=== PATIENT | female | born 1965 | race African-American/Black ===

== ENCOUNTER 2021-05-09 16:00 | Inpatient (IN) ==
[2021-05-09] MEDS ORDERED: GLUCAGON 1 MG VIAL IM PRN (19:34)
[2021-05-09] MEDS ORDERED: DEXTROSE 50% 25 GM/50 ML VIAL IV PRN (19:34)
[2021-05-09] MEDS ORDERED: ONDANSETRON 4 MG/2 ML VIAL IV PRN (19:38)
[2021-05-09] MEDS ORDERED: ACETAMINOPHEN 325 MG TABLET PO PRN (19:38)
[2021-05-09] MEDS ORDERED: SIMETHICONE CHEW 125 MG TABLET PO PRN (19:38)
[2021-05-09] MEDS ORDERED: SODIUM CHLORIDE 0.9% 1,000 ML IV SCH (20:00)
[2021-05-09 20:18] LABS: Basophils % 0.3 % (0.0-0.8); Eosinophils # 0.1 10*3/uL (0.0-0.87); Eosinophils % 0.6 % (0.00-10.9); Hematocrit 28.8 VOL% (35.7-47.0); Hemoglobin 9.1 GM/DL (12.0-16.0); Immature Granulocytes % 1.6 %; Immature Granulocytes Absolute 0.18 #; Lymphocytes # 1.8 10*3/uL (1.4-4.0); Mean Corpuscular HGB Conc 31.6 GM/DL (32-36); Mean Corpuscular Volume 85.7 FL (87-102); Mean Platelet Volume 10.4 FL (9.6-12.0); Monocytes % 9.7 % (1.7-12.7); NRBC # 0.02 10*3/uL; Neutrophils % 71.8 % (38.7-73.9); Platelet Count 225 T/CUMM (130-400); Red Blood Count 3.36 MC/CUMM (3.8-5.5); Red Cell Distribution Width 19.6 % (9.3-17.3); White Blood Count 11.3 T/CUMM (4-12)
[2021-05-09 20:29] LABS: PT Patient Result 11.3 SECS (10.5-12.0); Partial Thromboplastin Time 46.5 SECS (23.8-32.1)
[2021-05-09 20:40] LABS: Alanine Aminotransferase 23 U/L (13-56); Albumin 1.4 G/DL (3.4-5.0); Alkaline Phosphatase 93 U/L (45-117); Aspartate Amino Transferase 18 U/L (0-37); Bilirubin,Total < 0.39 MG/DL (0.20-1.00); Blood Urea Nitrogen 23 MG/DL (7-18); Calcium 8.1 MG/DL (8.5-10.1); Carbon Dioxide 25 MMOL/L (21-32); Estimated Glom Filtration Rate 37 ML/MIN; Glucose 223 MG/DL (74-106); Osmolality,Calculated 319.2 MOS/KG (273-304); Potassium 3.4 MMOL/L (3.5-5.1); Sodium 156 MMOL/L (136-145); Total Protein 5.2 G/DL (6.4-8.2)
[2021-05-09] MEDS: DOCUSATE SODIUM 100 MG CAPSULE PO SCH (21:23)
[2021-05-09] MEDS ORDERED: POTASSIUM CHLORIDE RIDER 10 MEQ/100 ML PREMIX IV PRN (22:12)
[2021-05-09] MEDS ORDERED: MAGNESIUM SULF RIDER 2 GM/50 ML PREMIX IV PRN (22:12)
[2021-05-09] MEDS ORDERED: MAGNESIUM SULF RIDER 4 GM/100 ML PREMIX IV PRN (22:12)
[2021-05-09] MEDS ORDERED: POTASSIUM CHLORIDE 20 MEQ TABLET PO PRN (22:12)
[2021-05-09] MEDS: INSULIN REGULAR 100 UNIT/ML SUBCUT SCH (23:45)
[2021-05-10 01:32] LABS: Osmolality,Calculated 315.2 MOS/KG (273-304); Potassium 3.5 MMOL/L (3.5-5.1)
[2021-05-10 01:48] LABS: Risk Ratio 2.56; Thyroid Stimulating Hormone 1.78 uIU/ml (0.358-3.74); VLDL Cholesterol 22.8 MG/DL
[2021-05-10] MEDS: INSULIN REGULAR 100 UNIT/ML SUBCUT SCH ×2 (01:52→05:46)
[2021-05-10] MEDS ORDERED: DEXTROSE 50% 25 GM/50 ML VIAL IV PRN (04:58)
[2021-05-10] MEDS ORDERED: SODIUM CHLORIDE 0.45% 1,000 ML IV SCH (05:00)
[2021-05-10] MEDS ORDERED: PANTOPRAZOLE 40 MG TABLET PO SCH (09:00)
[2021-05-10] MEDS: DOCUSATE SODIUM 100 MG CAPSULE PO SCH (09:34)
[2021-05-10 10:23] LABS: Bacteria,Urine Occasional /HPF (Few); Bilirubin,Urine Negative (Negative); Blood, Urine Negative (Negative); Glucose,Urine (UA) Negative (Negative); Hyaline Casts,Urine 1 /LPF (0-3); Ketones,Urine Negative (Negative); Mucus,Urine Occasional /LPF (Occasional); Nitrite,Urine Negative (Negative); Protein,Urine Negative; Squamous Epithelial Cell,Urine Occasional /HPF (0-10); Uric Acid Crystals,Urine Occasional /HPF (<1); Urine Appearance CLOUDY (Clear); Urine Color Yellow (Yellow); Urine Specific Gravity 1.013 (1.001-1.035); Urine Urobilinogen < 2.0 EU/DL (0.2-1.0)
[2021-05-10] MEDS ORDERED: INSULIN REGULAR 100 UNIT/ML SUBCUT SCH (12:00)
[2021-05-10 12:21] VITALS: BP 94/58
[2021-05-10 13:33] LABS: Calcium 7.9 MG/DL (8.5-10.1); Osmolality,Calculated 317.2 MOS/KG (273-304); Potassium 3.8 MMOL/L (3.5-5.1)
[2021-05-10] MEDS ORDERED: ENOXAPARIN 40 MG/0.4 ML SYRINGE SUBCUT SCH (14:00)
== END 2021-05-10 15:05 | disposition home health service (06) | DRG 918 ==
LOC: N.TELEN → SUATTDRO 18:11
PROVIDERS: ADMIT Internal Medicine; ATTEND Internal Medicine

== ENCOUNTER 2021-05-14 10:38 | Inpatient (IN) ==
[2021-05-14] MEDS ORDERED: DEXTROSE 50% 25 GM/50 ML SYRINGE IV ONE (14:55)
[2021-05-14] MEDS ORDERED: DEXTROSE 50% 25 GM/50 ML SYRINGE IV PRN (14:58)
[2021-05-14] MEDS ORDERED: guaiFENesin/DM ER 600-30 MG TABLET PO PRN (14:58)
[2021-05-14] MEDS ORDERED: GLUCAGON 1 MG VIAL IM PRN (14:58)
[2021-05-14] MEDS ORDERED: ONDANSETRON 4 MG/2 ML VIAL IV PRN (14:58)
[2021-05-14] MEDS ORDERED: BISACODYL 5 MG TABLET PO PRN (14:58)
[2021-05-14] MEDS ORDERED: DEXTROSE 5% NACL 0.45% 1,000 ML IV SCH (15:00)
[2021-05-14 15:39] LABS: Basophils % 0.2 % (0.0-0.8); Eosinophils # 0.3 10*3/uL (0.0-0.87); Eosinophils % 2.8 % (0.00-10.9); Hematocrit 28.3 VOL% (35.7-47.0); Hemoglobin 8.7 GM/DL (12.0-16.0); Immature Granulocytes % 1.7 %; Immature Granulocytes Absolute 0.17 #; Lymphocytes # 2.2 10*3/uL (1.4-4.0); Lymphocytes % 22.5 % (21.3-54.2); Mean Corpuscular HGB Conc 30.7 GM/DL (32-36); Mean Corpuscular Volume 89.8 FL (87-102); Mean Platelet Volume 10.8 FL (9.6-12.0); Monocytes % 7.8 % (1.7-12.7); NRBC # 0.03 10*3/uL; Platelet Count 194 T/CUMM (130-400); Red Blood Count 3.15 MC/CUMM (3.8-5.5); Red Cell Distribution Width 20.7 % (9.3-17.3)
[2021-05-14 15:52] LABS: PT Patient Result 11.4 SECS (10.5-12.0); Partial Thromboplastin Time 26.2 SECS (23.8-32.1)
[2021-05-14 15:54] LABS: Alanine Aminotransferase 26 U/L (13-56); Albumin 1.6 G/DL (3.4-5.0); Alkaline Phosphatase 122 U/L (45-117); Aspartate Amino Transferase 21 U/L (0-37); Bilirubin,Total < 0.39 MG/DL (0.20-1.00); Blood Urea Nitrogen 11 MG/DL (7-18); Calcium 8.1 MG/DL (8.5-10.1); Carbon Dioxide 25 MMOL/L (21-32); Estimated Glom Filtration Rate 51 ML/MIN; Glucose 97 MG/DL (74-106); Osmolality,Calculated 297.9 MOS/KG (273-304); Sodium 151 MMOL/L (136-145); Total Protein 5.8 G/DL (6.4-8.2)
[2021-05-14 16:30] LABS: Albumin 1.6 G/DL (3.4-5.0); Total Protein 5.7 G/DL (6.4-8.2)
[2021-05-14] MEDS ORDERED: SODIUM CHLORIDE 0.9% 1,000 ML IV ONE (16:35)
[2021-05-14] MEDS: ALBUTEROL/IPRATROPIUM 3 ML NEB RESP TX SCH (20:17)
[2021-05-14] MEDS: SIMVASTATIN 40 MG TABLET PO SCH (20:29)
[2021-05-14] MEDS: PANTOPRAZOLE 40 MG TABLET PO SCH (20:29)
[2021-05-14] MEDS: PIPERACILLIN/TAZOBACTAM 3,375 MG in SODIUM CHLORIDE 0.9% 100 ML IV SCH ×2 (23:39→23:48)
[2021-05-15] MEDS: ALBUTEROL/IPRATROPIUM 3 ML NEB RESP TX SCH ×4 (00:37→20:10)
[2021-05-15] MEDS ORDERED: SODIUM CHLORIDE 0.9% 500 ML IV ONE (04:58)
[2021-05-15 05:26] LABS: Basophils % 0.3 % (0.0-0.8); Eosinophils # 0.3 10*3/uL (0.0-0.87); Eosinophils % 2.8 % (0.00-10.9); Hematocrit 25.2 VOL% (35.7-47.0); Hemoglobin 7.6 GM/DL (12.0-16.0); Immature Granulocytes Absolute 0.19 #; Lymphocytes # 2.5 10*3/uL (1.4-4.0); Lymphocytes % 26.4 % (21.3-54.2); Mean Corpuscular HGB Conc 30.2 GM/DL (32-36); Monocytes % 10.6 % (1.7-12.7); Neutrophils % 57.9 % (38.7-73.9); Platelet Count 156 T/CUMM (130-400); Red Blood Count 2.77 MC/CUMM (3.8-5.5); Red Cell Distribution Width 20.6 % (9.3-17.3); White Blood Count 9.3 T/CUMM (4-12)
[2021-05-15 05:47] LABS: Calcium 7.5 MG/DL (8.5-10.1); Osmolality,Calculated 299.7 MOS/KG (273-304); Potassium 4.2 MMOL/L (3.5-5.1)
[2021-05-15 05:49] LABS: Risk Ratio 2.96; VLDL Cholesterol 37.6 MG/DL
[2021-05-15] MEDS: DEXTROSE 5% 1,000 ML IV SCH ×2 (08:42→23:40)
[2021-05-15] MEDS: PIPERACILLIN/TAZOBACTAM 3,375 MG in SODIUM CHLORIDE 0.9% 100 ML IV SCH ×3 (08:43→23:37)
[2021-05-15] MEDS: PANTOPRAZOLE 40 MG TABLET PO SCH ×2 (08:50→20:28)
[2021-05-15] MEDS ORDERED: GLUCAGON 1 MG VIAL IM PRN (18:44)
[2021-05-15] MEDS ORDERED: DEXTROSE 50% 25 GM/50 ML VIAL IV PRN (18:44)
[2021-05-15] MEDS ORDERED: FUROSEMIDE 20 MG/2 ML VIAL IV ONE (19:01)
[2021-05-15] MEDS: SIMVASTATIN 40 MG TABLET PO SCH (20:28)
[2021-05-15] MEDS ORDERED: INSULIN REGULAR 100 UNIT/ML SUBCUT SCH (22:00)
[2021-05-15] MEDS: INSULIN REGULAR 100 UNIT/ML SUBCUT SCH (23:36)
[2021-05-16] MEDS: ALBUTEROL/IPRATROPIUM 3 ML NEB RESP TX SCH ×4 (00:35→20:21)
[2021-05-16] MEDS: INSULIN REGULAR 100 UNIT/ML SUBCUT SCH ×5 (03:01→21:00)
[2021-05-16 08:18] LABS: Basophils % 0.2 % (0.0-0.8); Eosinophils # 0.4 10*3/uL (0.0-0.87); Eosinophils % 4.6 % (0.00-10.9); Hematocrit 24.5 VOL% (35.7-47.0); Hemoglobin 7.5 GM/DL (12.0-16.0); Immature Granulocytes % 2.9 %; Immature Granulocytes Absolute 0.26 #; Lymphocytes # 2.5 10*3/uL (1.4-4.0); Lymphocytes % 27.4 % (21.3-54.2); Mean Corpuscular HGB Conc 30.6 GM/DL (32-36); Mean Corpuscular Volume 90.1 FL (87-102); Mean Platelet Volume 9.9 FL (9.6-12.0); Monocytes % 13.8 % (1.7-12.7); Neutrophils % 51.1 % (38.7-73.9); Platelet Count 174 T/CUMM (130-400); Red Blood Count 2.72 MC/CUMM (3.8-5.5); Red Cell Distribution Width 21.3 % (9.3-17.3)
[2021-05-16] MEDS: PIPERACILLIN/TAZOBACTAM 3,375 MG in SODIUM CHLORIDE 0.9% 100 ML IV SCH ×3 (08:38→23:13)
[2021-05-16] MEDS: PANTOPRAZOLE 40 MG TABLET PO SCH ×2 (08:40→20:39)
[2021-05-16 08:46] LABS: Osmolality,Calculated 294.3 MOS/KG (273-304); Potassium 3.8 MMOL/L (3.5-5.1)
[2021-05-16] MEDS: DEXTROSE 5% 1,000 ML IV SCH (13:10)
[2021-05-16] MEDS: SIMVASTATIN 40 MG TABLET PO SCH (20:39)
[2021-05-17] MEDS: INSULIN REGULAR 100 UNIT/ML SUBCUT SCH ×6 (00:04→20:58)
[2021-05-17] MEDS: ALBUTEROL/IPRATROPIUM 3 ML NEB RESP TX SCH ×4 (00:43→19:12)
[2021-05-17 04:51] LABS: Basophils % 0.3 % (0.0-0.8); Eosinophils # 0.6 10*3/uL (0.0-0.87); Eosinophils % 5.7 % (0.00-10.9); Hematocrit 23.8 VOL% (35.7-47.0); Hemoglobin 7.3 GM/DL (12.0-16.0); Immature Granulocytes % 2.4 %; Immature Granulocytes Absolute 0.24 #; Lymphocytes # 2.2 10*3/uL (1.4-4.0); Lymphocytes % 22.1 % (21.3-54.2); Mean Corpuscular HGB Conc 30.7 GM/DL (32-36); Mean Corpuscular Volume 90.8 FL (87-102); Mean Platelet Volume 10.3 FL (9.6-12.0); Neutrophils % 57.5 % (38.7-73.9); Platelet Count 157 T/CUMM (130-400); Red Blood Count 2.62 MC/CUMM (3.8-5.5)
[2021-05-17 05:11] LABS: Calcium 7.8 MG/DL (8.5-10.1); Osmolality,Calculated 294.4 MOS/KG (273-304); Potassium 4.1 MMOL/L (3.5-5.1)
[2021-05-17] MEDS: PIPERACILLIN/TAZOBACTAM 3,375 MG in SODIUM CHLORIDE 0.9% 100 ML IV SCH (08:40)
[2021-05-17] MEDS: PANTOPRAZOLE 40 MG TABLET PO SCH ×2 (08:40→20:58)
[2021-05-17] MEDS: DEXTROSE 5% 1,000 ML IV SCH (08:47)
[2021-05-17] MEDS ORDERED: SODIUM CHLORIDE 0.9% 1,000 ML IV PRN ×2 (09:57→14:47)
[2021-05-17] MEDS ORDERED: TISSUE ADHESIVE 1 EACH APPLICATOR TOP ONE (11:07)
[2021-05-17 11:58] LABS: Glucose,Pleural Fluid 165 MG/DL; LDH,Body Fluid 360 U/L
[2021-05-17 12:39] LABS: Eosinophils,Pleural Fluid 1 %; Lymphocytes,Pleural Fluid 77 %; Monocytes,Pleural Fluid 4 %; Neutrophils,Pleural Fluid 18 %; RBC,Pleural Fluid 536 T/CUMM
[2021-05-17] MEDS: LEVOFLOXACIN INJ 750 MG/150 ML PREMIX IV SCH (13:32)
[2021-05-17] MEDS ORDERED: IPRATROPIUM 500 MCG/2.5 ML NEB RESP TX ONE (19:54)
[2021-05-17] MEDS ORDERED: ALBUTEROL 2.5 MG/3 ML NEB RESP TX ONE (19:54)
[2021-05-17] MEDS: SIMVASTATIN 40 MG TABLET PO SCH (20:58)
[2021-05-17] MEDS: CLINDAMYCIN INJ 600 MG/50 ML PREMIX IV SCH (21:10)
[2021-05-18] MEDS: ALBUTEROL/IPRATROPIUM 3 ML NEB RESP TX SCH ×4 (00:30→20:00)
[2021-05-18] MEDS: INSULIN REGULAR 100 UNIT/ML SUBCUT SCH ×6 (02:31→20:31)
[2021-05-18] MEDS: CLINDAMYCIN INJ 600 MG/50 ML PREMIX IV SCH ×4 (02:31→20:32)
[2021-05-18] MEDS: DEXTROSE 5% 1,000 ML IV SCH (06:19)
[2021-05-18] MEDS: PANTOPRAZOLE 40 MG TABLET PO SCH ×2 (08:47→20:31)
[2021-05-18 10:03] LABS: Basophils % 0.5 % (0.0-0.8); Eosinophils # 0.4 10*3/uL (0.0-0.87); Eosinophils % 5.2 % (0.00-10.9); Hematocrit 30.6 VOL% (35.7-47.0); Immature Granulocytes % 4.1 %; Immature Granulocytes Absolute 0.34 #; Lymphocytes # 1.5 10*3/uL (1.4-4.0); Lymphocytes % 17.9 % (21.3-54.2); Mean Corpuscular Volume 92.4 FL (87-102); Mean Platelet Volume 10.6 FL (9.6-12.0); Neutrophils % 62.3 % (38.7-73.9); Platelet Count 130 T/CUMM (130-400); Red Cell Distribution Width 19.8 % (9.3-17.3); White Blood Count 8.3 T/CUMM (4-12)
[2021-05-18 10:05] LABS: Red Blood Count 3.31 MC/CUMM (3.8-5.5)
[2021-05-18 10:06] LABS: Hemoglobin 9.5 GM/DL (12.0-16.0)
[2021-05-18 10:18] LABS: Calcium 7.9 MG/DL (8.5-10.1); Osmolality,Calculated 290.1 MOS/KG (273-304); Potassium 4.6 MMOL/L (3.5-5.1)
[2021-05-18] MEDS ORDERED: LIDOCAINE 1%/EPI INJ 20 ML VIAL ONE (14:58)
[2021-05-18] MEDS ORDERED: KETAMINE 500 MG/10 ML VIAL ONE (14:58)
[2021-05-18] MEDS ORDERED: propofoL 200 MG/20 ML VIAL IV ONE (14:58)
[2021-05-18] MEDS ORDERED: METOCLOPRAMIDE 10 MG/2 ML VIAL ONE (15:00)
[2021-05-18] MEDS ORDERED: BUPIVACAINE MPF 0.25% 30 ML VIAL ONE (15:22)
[2021-05-18] MEDS ORDERED: CHLOROPROCAINE 2% ONE (15:22)
[2021-05-18] MEDS ORDERED: ONDANSETRON 4 MG/2 ML VIAL IV PRN (15:46)
[2021-05-18] MEDS ORDERED: PROMETHAZINE INJ 25 MG in SODIUM CHLORIDE 0.9% 50 ML IV PRN (15:46)
[2021-05-18] MEDS ORDERED: MEPERIDINE 25 MG/1 ML VIAL IV PRN (15:46)
[2021-05-18] MEDS ORDERED: diphenhydrAMINE 50 MG/1 ML VIAL IV PRN (15:46)
[2021-05-18] MEDS: SIMVASTATIN 40 MG TABLET PO SCH (20:31)
[2021-05-19] MEDS: INSULIN REGULAR 100 UNIT/ML SUBCUT SCH ×6 (00:11→21:56)
[2021-05-19] MEDS: ALBUTEROL/IPRATROPIUM 3 ML NEB RESP TX SCH ×4 (00:40→19:48)
[2021-05-19] MEDS: CLINDAMYCIN INJ 600 MG/50 ML PREMIX IV SCH ×4 (02:30→21:06)
[2021-05-19 05:22] LABS: Basophils % 0.2 % (0.0-0.8); Eosinophils # 0.4 10*3/uL (0.0-0.87); Hematocrit 28.1 VOL% (35.7-47.0); Immature Granulocytes % 4.8 %; Immature Granulocytes Absolute 0.43 #; Lymphocytes # 1.8 10*3/uL (1.4-4.0); Lymphocytes % 19.4 % (21.3-54.2); Mean Corpuscular Volume 88.6 FL (87-102); Mean Platelet Volume 10.4 FL (9.6-12.0); Monocytes % 10.9 % (1.7-12.7); Neutrophils % 60.7 % (38.7-73.9); Platelet Count 168 T/CUMM (130-400); Red Blood Count 3.17 MC/CUMM (3.8-5.5)
[2021-05-19 05:50] LABS: Calcium 7.8 MG/DL (8.5-10.1); Osmolality,Calculated 297.4 MOS/KG (273-304); Potassium 4.2 MMOL/L (3.5-5.1)
[2021-05-19] MEDS ORDERED: DOXYCYCLINE HYCLATE INJ 200 MG, LIDOCAINE 1% INJ 20 ML in STERILE WATER INJ 30 ML INTRAPLEUR ONE (08:00)
[2021-05-19] MEDS: PANTOPRAZOLE 40 MG TABLET PO SCH ×2 (08:26→21:05)
[2021-05-19] MEDS: LEVOFLOXACIN INJ 750 MG/150 ML PREMIX IV SCH (11:27)
[2021-05-19] MEDS: DEXTROSE 5% 1,000 ML IV SCH ×2 (11:27→23:27)
[2021-05-19] MEDS: SIMVASTATIN 40 MG TABLET PO SCH (21:05)
[2021-05-20] MEDS: INSULIN REGULAR 100 UNIT/ML SUBCUT SCH ×6 (00:56→21:18)
[2021-05-20] MEDS: CLINDAMYCIN INJ 600 MG/50 ML PREMIX IV SCH ×4 (02:37→21:18)
[2021-05-20 05:14] LABS: Basophils % 0.3 % (0.0-0.8); Eosinophils # 0.3 10*3/uL (0.0-0.87); Eosinophils % 4.2 % (0.00-10.9); Hematocrit 27.1 VOL% (35.7-47.0); Hemoglobin 8.7 GM/DL (12.0-16.0); Immature Granulocytes % 5.3 %; Lymphocytes # 1.6 10*3/uL (1.4-4.0); Lymphocytes % 20.8 % (21.3-54.2); Mean Corpuscular HGB Conc 32.1 GM/DL (32-36); Mean Corpuscular Volume 88.6 FL (87-102); Mean Platelet Volume 9.8 FL (9.6-12.0); Monocytes % 13.1 % (1.7-12.7); Neutrophils % 56.3 % (38.7-73.9); Platelet Count 156 T/CUMM (130-400); Red Blood Count 3.06 MC/CUMM (3.8-5.5); Red Cell Distribution Width 19.3 % (9.3-17.3); White Blood Count 7.6 T/CUMM (4-12)
[2021-05-20 05:35] LABS: Calcium 7.7 MG/DL (8.5-10.1); Osmolality,Calculated 287.1 MOS/KG (273-304); Potassium 4.3 MMOL/L (3.5-5.1)
[2021-05-20 05:37] LABS: Band Neutrophils 1 % (0-10); Eosinophils 4 % (0-10); Hypochromasia 1+; Lymphocytes 24 % (20-55); Myelocytes 2 %; Segmented Neutrophils 60 % (50-85); Total Cells Counted 100
[2021-05-20 05:38] LABS: Microcytosis 1+; Platelet Estimate Adequate; Target Cells Slight
[2021-05-20] MEDS: ALBUTEROL/IPRATROPIUM 3 ML NEB RESP TX SCH ×4 (07:40→19:43)
[2021-05-20] MEDS: PANTOPRAZOLE 40 MG TABLET PO SCH ×2 (09:26→21:18)
[2021-05-20] MEDS: DEXTROSE 5% 1,000 ML IV SCH (09:28)
[2021-05-20] MEDS ORDERED: BISACODYL 5 MG TABLET PO ONE (11:44)
[2021-05-20] MEDS: LINACLOTIDE 145 MCG CAPSULE PO SCH (13:52)
[2021-05-20] MEDS: INSULIN GLARGINE 100 UNIT/ML SUBCUT SCH (17:47)
[2021-05-20] MEDS: SIMVASTATIN 40 MG TABLET PO SCH (21:18)
[2021-05-20] MEDS: ACETAMINOPHEN 325 MG TABLET PO PRN (22:23)
[2021-05-21] MEDS: ALBUTEROL/IPRATROPIUM 3 ML NEB RESP TX SCH ×4 (00:42→18:49)
[2021-05-21] MEDS: INSULIN REGULAR 100 UNIT/ML SUBCUT SCH ×6 (01:07→21:29)
[2021-05-21] MEDS: CLINDAMYCIN INJ 600 MG/50 ML PREMIX IV SCH ×4 (03:06→21:29)
[2021-05-21] MEDS: PANTOPRAZOLE 40 MG TABLET PO SCH ×2 (08:49→21:28)
[2021-05-21] MEDS: LINACLOTIDE 145 MCG CAPSULE PO SCH (08:49)
[2021-05-21] MEDS: INSULIN GLARGINE 100 UNIT/ML SUBCUT SCH (08:50)
[2021-05-21] MEDS: LEVOFLOXACIN INJ 750 MG/150 ML PREMIX IV SCH (11:35)
[2021-05-21] MEDS: SIMVASTATIN 40 MG TABLET PO SCH (21:28)
[2021-05-22] MEDS: ALBUTEROL/IPRATROPIUM 3 ML NEB RESP TX SCH ×4 (00:55→19:40)
[2021-05-22] MEDS: CLINDAMYCIN INJ 600 MG/50 ML PREMIX IV SCH ×2 (03:30→08:51)
[2021-05-22] MEDS: INSULIN REGULAR 100 UNIT/ML SUBCUT SCH ×6 (03:37→20:59)
[2021-05-22] MEDS: PANTOPRAZOLE 40 MG TABLET PO SCH ×2 (08:51→20:59)
[2021-05-22] MEDS: LINACLOTIDE 145 MCG CAPSULE PO SCH (08:51)
[2021-05-22] MEDS: INSULIN GLARGINE 100 UNIT/ML SUBCUT SCH (08:52)
[2021-05-22] MEDS ORDERED: MAGNESIUM CITRATE 300 ML BOTTLE PO ONE (11:25)
[2021-05-22] MEDS: SIMVASTATIN 40 MG TABLET PO SCH (20:59)
[2021-05-23] MEDS: INSULIN REGULAR 100 UNIT/ML SUBCUT SCH ×6 (00:10→20:46)
[2021-05-23] MEDS: ALBUTEROL/IPRATROPIUM 3 ML NEB RESP TX SCH ×4 (00:40→21:54)
[2021-05-23 06:07] LABS: Basophils % 0.4 % (0.0-0.8); Eosinophils # 0.3 10*3/uL (0.0-0.87); Eosinophils % 3.9 % (0.00-10.9); Hematocrit 28.6 VOL% (35.7-47.0); Hemoglobin 9.3 GM/DL (12.0-16.0); Immature Granulocytes % 6.2 %; Lymphocytes # 1.6 10*3/uL (1.4-4.0); Lymphocytes % 20.3 % (21.3-54.2); Mean Corpuscular HGB Conc 32.5 GM/DL (32-36); Mean Platelet Volume 9.6 FL (9.6-12.0); Monocytes % 10.2 % (1.7-12.7); Platelet Count 192 T/CUMM (130-400); Red Blood Count 3.25 MC/CUMM (3.8-5.5); Red Cell Distribution Width 18.5 % (9.3-17.3)
[2021-05-23 06:29] LABS: Alanine Aminotransferase < 9 U/L (13-56); Albumin 1.3 G/DL (3.4-5.0); Alkaline Phosphatase 73 U/L (45-117); Aspartate Amino Transferase 12 U/L (0-37); Blood Urea Nitrogen 14 MG/DL (7-18); Calcium 8.1 MG/DL (8.5-10.1); Carbon Dioxide 22 MMOL/L (21-32); Estimated Glom Filtration Rate 53 ML/MIN; Glucose 155 MG/DL (74-106); Osmolality,Calculated 276.8 MOS/KG (273-304); Potassium 4.1 MMOL/L (3.5-5.1); Sodium 137 MMOL/L (136-145); Total Protein 5.3 G/DL (6.4-8.2)
[2021-05-23 06:39] LABS: Eosinophils 5 % (0-10); Hypochromasia 1+; Lymphocytes 18 % (20-55); Microcytosis 1+; Myelocytes 2 %; Segmented Neutrophils 66 % (50-85); Target Cells Slight; Total Cells Counted 100
[2021-05-23 06:40] LABS: Platelet Estimate Adequate
[2021-05-23] MEDS: INSULIN GLARGINE 100 UNIT/ML SUBCUT SCH (09:06)
[2021-05-23] MEDS: LINACLOTIDE 145 MCG CAPSULE PO SCH (09:06)
[2021-05-23] MEDS: PANTOPRAZOLE 40 MG TABLET PO SCH ×2 (09:07→20:46)
[2021-05-23] MEDS ORDERED: SODIUM PHOSPHATE ENEMA 133 ML BOTTLE RECTAL ONE (11:07)
[2021-05-23] MEDS ORDERED: BISACODYL 10 MG SUPP RECTAL ONE (11:07)
[2021-05-23] MEDS: LEVOFLOXACIN INJ 750 MG/150 ML PREMIX IV SCH (11:44)
[2021-05-23] MEDS ORDERED: DEXTROSE 50% 25 GM/50 ML VIAL IV PRN (12:02)
[2021-05-23] MEDS ORDERED: GLUCAGON 1 MG VIAL IM PRN (12:02)
[2021-05-23] MEDS: SIMVASTATIN 40 MG TABLET PO SCH (20:46)
[2021-05-24] MEDS: ALBUTEROL/IPRATROPIUM 3 ML NEB RESP TX SCH ×4 (00:52→20:10)
[2021-05-24 06:07] LABS: Basophils % 0.4 % (0.0-0.8); Eosinophils # 0.3 10*3/uL (0.0-0.87); Hematocrit 29.2 VOL% (35.7-47.0); Hemoglobin 9.2 GM/DL (12.0-16.0); Immature Granulocytes % 6.2 %; Immature Granulocytes Absolute 0.45 #; Lymphocytes # 1.5 10*3/uL (1.4-4.0); Lymphocytes % 20.2 % (21.3-54.2); Mean Corpuscular HGB Conc 31.5 GM/DL (32-36); Mean Platelet Volume 9.6 FL (9.6-12.0); Monocytes % 10.5 % (1.7-12.7); Neutrophils % 58.7 % (38.7-73.9); Platelet Count 195 T/CUMM (130-400); Red Blood Count 3.28 MC/CUMM (3.8-5.5); Red Cell Distribution Width 18.2 % (9.3-17.3); White Blood Count 7.2 T/CUMM (4-12)
[2021-05-24 06:35] LABS: Eosinophils 3 % (0-10); Hypochromasia 1+; Lymphocytes 15 % (20-55); Metamyelocytes 1 %; Microcytosis 1+; Myelocytes 2 %; Platelet Estimate Adequate; Segmented Neutrophils 72 % (50-85); Target Cells Slight; Total Cells Counted 100
[2021-05-24 06:58] LABS: Calcium 8.2 MG/DL (8.5-10.1); Osmolality,Calculated 277.7 MOS/KG (273-304); Potassium 4.1 MMOL/L (3.5-5.1)
[2021-05-24] MEDS: PANTOPRAZOLE 40 MG TABLET PO SCH ×2 (09:20→20:23)
[2021-05-24] MEDS: LINACLOTIDE 145 MCG CAPSULE PO SCH (09:21)
[2021-05-24] MEDS: INSULIN REGULAR 100 UNIT/ML SUBCUT SCH ×4 (09:22→20:59)
[2021-05-24] MEDS: INSULIN GLARGINE 100 UNIT/ML SUBCUT SCH (09:23)
[2021-05-24] MEDS: SIMVASTATIN 40 MG TABLET PO SCH (20:23)
[2021-05-25] MEDS: ALBUTEROL/IPRATROPIUM 3 ML NEB RESP TX SCH ×4 (01:08→20:41)
[2021-05-25] MEDS ORDERED: KETOROLAC 30 MG/1 ML VIAL IV ONE (02:02)
[2021-05-25 05:18] LABS: Basophils # 0.1 10*3/uL (0.0-0.2); Basophils % 0.7 % (0.0-0.8); Eosinophils # 0.3 10*3/uL (0.0-0.87); Eosinophils % 4.1 % (0.00-10.9); Hematocrit 27.6 VOL% (35.7-47.0); Hemoglobin 8.9 GM/DL (12.0-16.0); Immature Granulocytes % 5.6 %; Immature Granulocytes Absolute 0.45 #; Lymphocytes # 1.4 10*3/uL (1.4-4.0); Lymphocytes % 17.6 % (21.3-54.2); Mean Corpuscular HGB Conc 32.2 GM/DL (32-36); Mean Corpuscular Volume 88.2 FL (87-102); Mean Platelet Volume 9.8 FL (9.6-12.0); Monocytes % 10.4 % (1.7-12.7); Neutrophils % 61.6 % (38.7-73.9); Platelet Count 224 T/CUMM (130-400); Red Blood Count 3.13 MC/CUMM (3.8-5.5); White Blood Count 8.1 T/CUMM (4-12)
[2021-05-25 05:32] LABS: Calcium 7.9 MG/DL (8.5-10.1); Osmolality,Calculated 276.8 MOS/KG (273-304)
[2021-05-25 05:44] LABS: Eosinophils 5 % (0-10); Hypochromasia 1+; Lymphocytes 17 % (20-55); Microcytosis 1+; Platelet Estimate Adequate; Segmented Neutrophils 72 % (50-85); Total Cells Counted 100
[2021-05-25] MEDS: INSULIN GLARGINE 100 UNIT/ML SUBCUT SCH (10:22)
[2021-05-25] MEDS: PANTOPRAZOLE 40 MG TABLET PO SCH ×2 (10:22→20:19)
[2021-05-25] MEDS: LINACLOTIDE 145 MCG CAPSULE PO SCH (10:22)
[2021-05-25] MEDS: INSULIN REGULAR 100 UNIT/ML SUBCUT SCH ×4 (10:22→21:26)
[2021-05-25] MEDS: SIMVASTATIN 40 MG TABLET PO SCH (20:19)
[2021-05-26] MEDS: ALBUTEROL/IPRATROPIUM 3 ML NEB RESP TX SCH ×4 (01:17→20:33)
[2021-05-26] MEDS: LINACLOTIDE 145 MCG CAPSULE PO SCH (07:47)
[2021-05-26] MEDS: INSULIN GLARGINE 100 UNIT/ML SUBCUT SCH (09:16)
[2021-05-26] MEDS: INSULIN REGULAR 100 UNIT/ML SUBCUT SCH ×4 (09:16→20:34)
[2021-05-26] MEDS: PANTOPRAZOLE 40 MG TABLET PO SCH ×2 (09:16→20:34)
[2021-05-26] MEDS ORDERED: DOXYCYCLINE HYCLATE INJ 200 MG, LIDOCAINE 1% INJ 20 ML in STERILE WATER INJ 30 ML INTRAPLEUR ONE (09:34)
[2021-05-26] MEDS: SIMVASTATIN 40 MG TABLET PO SCH (20:34)
[2021-05-27] MEDS: ALBUTEROL/IPRATROPIUM 3 ML NEB RESP TX SCH ×4 (00:24→20:31)
[2021-05-27] MEDS: ACETAMINOPHEN 325 MG TABLET PO PRN (04:48)
[2021-05-27 06:58] LABS: Basophils % 0.4 % (0.0-0.8); Eosinophils # 0.4 10*3/uL (0.0-0.87); Eosinophils % 3.9 % (0.00-10.9); Hematocrit 28.5 VOL% (35.7-47.0); Hemoglobin 9.3 GM/DL (12.0-16.0); Immature Granulocytes % 4.4 %; Immature Granulocytes Absolute 0.43 #; Lymphocytes # 1.6 10*3/uL (1.4-4.0); Lymphocytes % 16.2 % (21.3-54.2); Mean Corpuscular HGB Conc 32.6 GM/DL (32-36); Mean Corpuscular Volume 87.7 FL (87-102); Mean Platelet Volume 9.4 FL (9.6-12.0); Monocytes % 11.8 % (1.7-12.7); Neutrophils % 63.3 % (38.7-73.9); Platelet Count 226 T/CUMM (130-400); Red Blood Count 3.25 MC/CUMM (3.8-5.5); Red Cell Distribution Width 17.5 % (9.3-17.3); White Blood Count 9.7 T/CUMM (4-12)
[2021-05-27] MEDS: INSULIN GLARGINE 100 UNIT/ML SUBCUT SCH (08:30)
[2021-05-27] MEDS: INSULIN REGULAR 100 UNIT/ML SUBCUT SCH ×4 (08:30→20:16)
[2021-05-27] MEDS: LINACLOTIDE 145 MCG CAPSULE PO SCH (08:30)
[2021-05-27] MEDS: PANTOPRAZOLE 40 MG TABLET PO SCH ×2 (08:31→20:46)
[2021-05-27] MEDS: SIMVASTATIN 40 MG TABLET PO SCH (20:46)
[2021-05-28] MEDS: ALBUTEROL/IPRATROPIUM 3 ML NEB RESP TX SCH ×4 (01:28→19:13)
[2021-05-28] MEDS: PANTOPRAZOLE 40 MG TABLET PO SCH ×2 (09:26→20:31)
[2021-05-28] MEDS: INSULIN GLARGINE 100 UNIT/ML SUBCUT SCH (09:28)
[2021-05-28] MEDS: INSULIN REGULAR 100 UNIT/ML SUBCUT SCH ×4 (09:28→20:36)
[2021-05-28] MEDS: LINACLOTIDE 145 MCG CAPSULE PO SCH (09:29)
[2021-05-28] MEDS: SIMVASTATIN 40 MG TABLET PO SCH (20:31)
[2021-05-29] MEDS: ALBUTEROL/IPRATROPIUM 3 ML NEB RESP TX SCH ×4 (00:54→19:36)
[2021-05-29 05:41] LABS: Basophils % 0.4 % (0.0-0.8); Eosinophils # 0.4 10*3/uL (0.0-0.87); Hematocrit 26.5 VOL% (35.7-47.0); Hemoglobin 8.6 GM/DL (12.0-16.0); Immature Granulocytes % 2.8 %; Immature Granulocytes Absolute 0.23 #; Lymphocytes # 1.8 10*3/uL (1.4-4.0); Mean Corpuscular HGB Conc 32.5 GM/DL (32-36); Mean Corpuscular Volume 88.6 FL (87-102); Mean Platelet Volume 9.2 FL (9.6-12.0); Monocytes % 12.6 % (1.7-12.7); Neutrophils % 57.2 % (38.7-73.9); Platelet Count 264 T/CUMM (130-400); Red Blood Count 2.99 MC/CUMM (3.8-5.5); Red Cell Distribution Width 17.4 % (9.3-17.3); White Blood Count 8.3 T/CUMM (4-12)
[2021-05-29 06:12] LABS: Albumin 1.4 G/DL (3.4-5.0); Bilirubin,Total 0.7 MG/DL (0.20-1.00); Calcium 8.4 MG/DL (8.5-10.1); Osmolality,Calculated 274.7 MOS/KG (273-304); Potassium 3.8 MMOL/L (3.5-5.1); Total Protein 5.7 G/DL (6.4-8.2)
[2021-05-29] MEDS: INSULIN REGULAR 100 UNIT/ML SUBCUT SCH ×4 (07:21→20:52)
[2021-05-29] MEDS: PANTOPRAZOLE 40 MG TABLET PO SCH ×2 (09:12→20:18)
[2021-05-29] MEDS: INSULIN GLARGINE 100 UNIT/ML SUBCUT SCH (09:13)
[2021-05-29] MEDS: LINACLOTIDE 145 MCG CAPSULE PO SCH (10:29)
[2021-05-29] MEDS: SIMVASTATIN 40 MG TABLET PO SCH (20:18)
[2021-05-30] MEDS: ALBUTEROL/IPRATROPIUM 3 ML NEB RESP TX SCH ×3 (07:20→19:30)
[2021-05-30] MEDS: LINACLOTIDE 145 MCG CAPSULE PO SCH (13:03)
[2021-05-30] MEDS: INSULIN REGULAR 100 UNIT/ML SUBCUT SCH ×3 (13:03→21:57)
[2021-05-30] MEDS: PANTOPRAZOLE 40 MG TABLET PO SCH ×2 (13:04→20:11)
[2021-05-30] MEDS: INSULIN GLARGINE 100 UNIT/ML SUBCUT SCH (13:04)
[2021-05-30 13:17] LABS: Basophils % 0.2 % (0.0-0.8); Eosinophils # 0.3 10*3/uL (0.0-0.87); Hematocrit 27.4 VOL% (35.7-47.0); Hemoglobin 8.5 GM/DL (12.0-16.0); Immature Granulocytes Absolute 0.17 #; Lymphocytes # 1.9 10*3/uL (1.4-4.0); Lymphocytes % 22.2 % (21.3-54.2); Mean Corpuscular Volume 89.5 FL (87-102); Mean Platelet Volume 9.3 FL (9.6-12.0); Monocytes % 11.4 % (1.7-12.7); Neutrophils % 60.2 % (38.7-73.9); Platelet Count 292 T/CUMM (130-400); Red Blood Count 3.06 MC/CUMM (3.8-5.5); Red Cell Distribution Width 17.3 % (9.3-17.3); White Blood Count 8.3 T/CUMM (4-12)
[2021-05-30 13:35] LABS: Calcium 8.3 MG/DL (8.5-10.1); Osmolality,Calculated 271.7 MOS/KG (273-304); Potassium 3.7 MMOL/L (3.5-5.1)
[2021-05-30] MEDS: SIMVASTATIN 40 MG TABLET PO SCH (20:11)
[2021-05-31] MEDS: ALBUTEROL/IPRATROPIUM 3 ML NEB RESP TX SCH ×5 (00:10→19:12)
[2021-05-31 06:43] LABS: Basophils % 0.4 % (0.0-0.8); Eosinophils # 0.3 10*3/uL (0.0-0.87); Eosinophils % 3.9 % (0.00-10.9); Hematocrit 26.7 VOL% (35.7-47.0); Hemoglobin 8.5 GM/DL (12.0-16.0); Immature Granulocytes % 1.8 %; Immature Granulocytes Absolute 0.15 #; Lymphocytes # 1.7 10*3/uL (1.4-4.0); Lymphocytes % 20.9 % (21.3-54.2); Mean Corpuscular HGB Conc 31.8 GM/DL (32-36); Mean Corpuscular Volume 88.7 FL (87-102); Monocytes % 9.9 % (1.7-12.7); Neutrophils % 63.1 % (38.7-73.9); Platelet Count 322 T/CUMM (130-400); Red Blood Count 3.01 MC/CUMM (3.8-5.5); Red Cell Distribution Width 17.2 % (9.3-17.3); White Blood Count 8.3 T/CUMM (4-12)
[2021-05-31 06:56] LABS: Calcium 8.1 MG/DL (8.5-10.1); Osmolality,Calculated 275.4 MOS/KG (273-304); Potassium 3.9 MMOL/L (3.5-5.1)
[2021-05-31] MEDS: LINACLOTIDE 145 MCG CAPSULE PO SCH (09:15)
[2021-05-31] MEDS: PANTOPRAZOLE 40 MG TABLET PO SCH ×2 (09:15→20:37)
[2021-05-31] MEDS: INSULIN GLARGINE 100 UNIT/ML SUBCUT SCH (09:17)
[2021-05-31] MEDS: INSULIN REGULAR 100 UNIT/ML SUBCUT SCH ×4 (10:16→20:38)
[2021-05-31] MEDS: SIMVASTATIN 40 MG TABLET PO SCH (20:37)
[2021-06-01] MEDS: ALBUTEROL/IPRATROPIUM 3 ML NEB RESP TX SCH ×3 (00:22→19:48)
[2021-06-01 06:52] LABS: Basophils % 0.4 % (0.0-0.8); Eosinophils # 0.4 10*3/uL (0.0-0.87); Eosinophils % 4.6 % (0.00-10.9); Hematocrit 28.4 VOL% (35.7-47.0); Hemoglobin 8.9 GM/DL (12.0-16.0); Immature Granulocytes % 1.8 %; Immature Granulocytes Absolute 0.15 #; Lymphocytes # 1.5 10*3/uL (1.4-4.0); Lymphocytes % 18.8 % (21.3-54.2); Mean Corpuscular HGB Conc 31.3 GM/DL (32-36); Mean Corpuscular Volume 89.3 FL (87-102); Mean Platelet Volume 8.9 FL (9.6-12.0); Monocytes % 9.9 % (1.7-12.7); Neutrophils % 64.5 % (38.7-73.9); Platelet Count 335 T/CUMM (130-400); Red Blood Count 3.18 MC/CUMM (3.8-5.5); Red Cell Distribution Width 17.2 % (9.3-17.3); White Blood Count 8.2 T/CUMM (4-12)
[2021-06-01 06:57] LABS: Calcium 8.6 MG/DL (8.5-10.1); Osmolality,Calculated 274.5 MOS/KG (273-304); Potassium 4.1 MMOL/L (3.5-5.1)
[2021-06-01] MEDS: INSULIN REGULAR 100 UNIT/ML SUBCUT SCH ×4 (08:41→21:03)
[2021-06-01] MEDS: PANTOPRAZOLE 40 MG TABLET PO SCH ×2 (09:01→20:45)
[2021-06-01] MEDS: INSULIN GLARGINE 100 UNIT/ML SUBCUT SCH (09:01)
[2021-06-01] MEDS: LINACLOTIDE 145 MCG CAPSULE PO SCH (09:01)
[2021-06-01] MEDS: SIMVASTATIN 40 MG TABLET PO SCH (20:45)
[2021-06-02] MEDS: ALBUTEROL/IPRATROPIUM 3 ML NEB RESP TX SCH ×5 (01:12→19:50)
[2021-06-02 05:42] LABS: Basophils % 0.3 % (0.0-0.8); Eosinophils # 0.4 10*3/uL (0.0-0.87); Eosinophils % 4.9 % (0.00-10.9); Hemoglobin 8.7 GM/DL (12.0-16.0); Immature Granulocytes Absolute 0.17 #; Lymphocytes % 22.4 % (21.3-54.2); Mean Corpuscular HGB Conc 32.2 GM/DL (32-36); Mean Corpuscular Volume 90.3 FL (87-102); Monocytes % 9.8 % (1.7-12.7); Neutrophils % 60.6 % (38.7-73.9); Platelet Count 364 T/CUMM (130-400); Red Blood Count 2.99 MC/CUMM (3.8-5.5); Red Cell Distribution Width 17.2 % (9.3-17.3); White Blood Count 8.7 T/CUMM (4-12)
[2021-06-02 05:57] LABS: Calcium 8.4 MG/DL (8.5-10.1); Osmolality,Calculated 280.3 MOS/KG (273-304); Potassium 4.1 MMOL/L (3.5-5.1)
[2021-06-02] MEDS: PANTOPRAZOLE 40 MG TABLET PO SCH ×2 (09:04→20:57)
[2021-06-02] MEDS: LINACLOTIDE 145 MCG CAPSULE PO SCH (09:05)
[2021-06-02] MEDS: INSULIN REGULAR 100 UNIT/ML SUBCUT SCH ×4 (09:06→20:58)
[2021-06-02] MEDS: INSULIN GLARGINE 100 UNIT/ML SUBCUT SCH (09:06)
[2021-06-02] MEDS ORDERED: CYANOCOBALAMIN 1000 MCG/1 ML VIAL SUBCUT ONE (09:26)
[2021-06-02] MEDS: FOLIC ACID 1 MG TABLET PO SCH (12:49)
[2021-06-02] MEDS ORDERED: SODIUM CHLORIDE 0.9% IV ONE (13:00)
[2021-06-02] MEDS ORDERED: PALONOSETRON 0.25 MG/5 ML VIAL IV ONE (13:00)
[2021-06-02] MEDS ORDERED: PEMETREXED IV ONE (13:00)
[2021-06-02] MEDS ORDERED: DEXAMETHASONE 10 MG/1 ML VIAL IV ONE (13:00)
[2021-06-02] MEDS ORDERED: CARBOplatin 500 MG in SODIUM CHLORIDE 0.9% 250 ML IV ONE (13:00)
[2021-06-02] MEDS: SIMVASTATIN 40 MG TABLET PO SCH (20:57)
[2021-06-03] MEDS: ALBUTEROL/IPRATROPIUM 3 ML NEB RESP TX SCH ×4 (00:37→19:30)
[2021-06-03 06:30] LABS: Basophils % 0.2 % (0.0-0.8); Hematocrit 30.1 VOL% (35.7-47.0); Hemoglobin 9.4 GM/DL (12.0-16.0); Immature Granulocytes % 1.4 %; Immature Granulocytes Absolute 0.16 #; Lymphocytes # 1.4 10*3/uL (1.4-4.0); Lymphocytes % 12.7 % (21.3-54.2); Mean Corpuscular HGB Conc 31.2 GM/DL (32-36); Mean Corpuscular Volume 90.1 FL (87-102); Mean Platelet Volume 10.3 FL (9.6-12.0); Monocytes % 5.5 % (1.7-12.7); Neutrophils % 80.2 % (38.7-73.9); Platelet Count 344 T/CUMM (130-400); Red Blood Count 3.34 MC/CUMM (3.8-5.5); Red Cell Distribution Width 16.8 % (9.3-17.3)
[2021-06-03 06:57] LABS: Calcium 8.6 MG/DL (8.5-10.1); Osmolality,Calculated 275.2 MOS/KG (273-304); Potassium 4.9 MMOL/L (3.5-5.1)
[2021-06-03] MEDS ORDERED: VANCOMYCIN INJ 1,000 MG in SODIUM CHLORIDE 0.9% 250 ML IV ONE (07:00)
[2021-06-03] MEDS ORDERED: LIDOCAINE 2% 5 ML VIAL ONE (08:23)
[2021-06-03] MEDS ORDERED: MIDAZOLAM 2 MG/2 ML VIAL ONE (08:23)
[2021-06-03] MEDS ORDERED: fentaNYL 100 MCG/2 ML VIAL ONE (08:23)
[2021-06-03] MEDS ORDERED: propofoL 200 MG/20 ML VIAL IV ONE (08:23)
[2021-06-03] MEDS ORDERED: BUPIVACAINE 0.5% 50 ML VIAL ONE (08:25)
[2021-06-03] MEDS ORDERED: ETOMIDATE 40 MG/20 ML VIAL IV ONE (08:28)
[2021-06-03] MEDS ORDERED: VANCOMYCIN 1,000 MG VIAL ONE (08:51)
[2021-06-03] MEDS ORDERED: LACTATED RINGERS 1,000 ML IV SCH (09:00)
[2021-06-03] MEDS: LINACLOTIDE 145 MCG CAPSULE PO SCH (12:41)
[2021-06-03] MEDS: PANTOPRAZOLE 40 MG TABLET PO SCH ×2 (12:41→21:40)
[2021-06-03] MEDS: FOLIC ACID 1 MG TABLET PO SCH (12:41)
[2021-06-03] MEDS: INSULIN GLARGINE 100 UNIT/ML SUBCUT SCH (12:42)
[2021-06-03] MEDS: FILGRASTIM-SNDZ 300 MCG/0.5 ML SYRINGE SUBCUT SCH (12:43)
[2021-06-03] MEDS: INSULIN REGULAR 100 UNIT/ML SUBCUT SCH ×3 (12:49→17:38)
[2021-06-03] MEDS: SIMVASTATIN 40 MG TABLET PO SCH (21:40)
[2021-06-04] MEDS: INSULIN REGULAR 100 UNIT/ML SUBCUT SCH ×2 (00:17→08:31)
[2021-06-04] MEDS: ALBUTEROL/IPRATROPIUM 3 ML NEB RESP TX SCH ×2 (00:35→07:10)
[2021-06-04 08:18] LABS: Basophils # 0.1 10*3/uL (0.0-0.2); Basophils % 0.2 % (0.0-0.8); Eosinophils # 0.6 10*3/uL (0.0-0.87); Hematocrit 27.3 VOL% (35.7-47.0); Hemoglobin 8.5 GM/DL (12.0-16.0); Immature Granulocytes % 4.9 %; Immature Granulocytes Absolute 1.39 #; Lymphocytes % 10.7 % (21.3-54.2); Mean Corpuscular HGB Conc 31.1 GM/DL (32-36); Mean Corpuscular Volume 90.4 FL (87-102); Mean Platelet Volume 8.9 FL (9.6-12.0); Monocytes % 2.6 % (1.7-12.7); Neutrophils % 79.6 % (38.7-73.9); Platelet Count 388 T/CUMM (130-400); Red Blood Count 3.02 MC/CUMM (3.8-5.5); Red Cell Distribution Width 17.1 % (9.3-17.3); White Blood Count 28.4 T/CUMM (4-12)
[2021-06-04 08:32] LABS: Calcium 8.6 MG/DL (8.5-10.1); Osmolality,Calculated 273.7 MOS/KG (273-304); Potassium 4.4 MMOL/L (3.5-5.1)
[2021-06-04 08:40] LABS: Anisocytosis 1+; Band Neutrophils 11 % (0-10); Eosinophils 5 % (0-10); Lymphocytes 15 % (20-55); Platelet Estimate Normal; Segmented Neutrophils 68 % (50-85); Total Cells Counted 100
[2021-06-04 08:41] LABS: Macrocytosis Slight
[2021-06-04 08:48] VITALS: BP 101/49
[2021-06-04] MEDS ORDERED: INSULIN GLARGINE 100 UNIT/ML SUBCUT SCH (09:00)
[2021-06-04] MEDS: PANTOPRAZOLE 40 MG TABLET PO SCH (09:53)
[2021-06-04] MEDS: FOLIC ACID 1 MG TABLET PO SCH (09:53)
[2021-06-04] MEDS: FILGRASTIM-SNDZ 300 MCG/0.5 ML SYRINGE SUBCUT SCH (09:55)
[2021-06-04] MEDS: LINACLOTIDE 145 MCG CAPSULE PO SCH (09:55)
[2021-06-04] MEDS ORDERED: HEPARIN LOCK FLUSH 500 UNIT/5 ML SYRINGE IV ONE (10:27)
[2021-06-04] MEDS ORDERED: INFLUENZA VIRUS VACCINE 0.5 ML SYRINGE IM ONE (11:22)
== END 2021-06-04 11:35 | disposition home health service (06) | DRG 180 ==
LOC: N.2W → SUATTDRO 14:08 → N.2E 05-19 12:00
PROVIDERS: ADMIT Internal Medicine; ATTEND Internal Medicine